=== PATIENT | male | born 1955 | race African-American/Black ===

== ENCOUNTER 2016-06-29 11:46 | Emergency (ER) | payer MEDICARE, MEDICAID ==
[~2016-06-29] VITALS: Ht 177.8 cm; Wt 71.2 kg
[~2016-06-29 11:46] MED LIST: AUGMENTIN 875-1 EAC1 ORAL; BACTRIM DS TAB1 EAC1 ORAL; ENALAPRIL MALEA10 MG ORAL; EPZICOM1 TAB ORAL; FLOMAX0.4 MG ORAL; HYDROCHLOROTH12.5 MG ORAL; IBUPROFEN600 MG ORAL; KEFLEX500 MG ORAL; LIPITOR40 MG ORAL; NORVIR100 MG ORAL; REYATAZ150 MG ORAL; UNOBMED
[2016-06-29] MEDS ORDERED: Clindamycin 900mg 50 ML IVPB ONE (12:30)
[2016-06-29 13:09] LABS: BASOPHILS % (AUTO) 0.6 % (0.0-2.0); EOSINOPHILS % (AUTO) 0.5 % (0.0-3.0); LYMPHOCYTES % (AUTO) 10.6 % (20.0-45.0); MEAN CORPUSCULAR HEMOGLOBIN 27.8 PG (27.0-31.0); MEAN CORPUSCULAR HGB CONC 31.3 G/DL (32.0-36.0); MEAN CORPUSCULAR VOLUME 89 FL (80-99); MEAN PLATELET VOLUME 10.3 FL (6.5-10.1); MONOCYTES % (AUTO) 5.7 % (1.0-10.0); NEUTROPHILS % (AUTO) 82.5 % (45.0-75.0); PLATELET COUNT 255 K/UL (150-450); RED BLOOD COUNT 5.27 M/UL (4.70-6.10); RED CELL DISTRIBUTION WIDTH 12.9 % (11.6-14.8); WHITE BLOOD COUNT 15.7 K/UL (4.8-10.8)
[2016-06-29 13:23] VITALS: BP 192/113
[2016-06-29 13:27] LABS: ALANINE AMINOTRANSFERASE 16 U/L (3-41); ALBUMIN/GLOBULIN RATIO 1.1 (1.0-2.7); ANION GAP 14 (5-15); ASPARTATE AMINO TRANSFERASE 24 U/L (5-40); CALCIUM 9.7 mg/dL (8.6-10.2); CARBON DIOXIDE 29 mEQ/L (20-30); CHLORIDE 96 mEQ/L (98-107); CREATININE 1.1 mg/dL (0.7-1.2); GLOMERULAR FILTRATION RATE > 60 mL/min (>60); HEMOLYSIS 4; POTASSIUM 4.2 mEQ/L (3.4-4.9); SODIUM 139 mEQ/L (135-145); TOTAL PROTEIN 7.5 g/dL (6.6-8.7)
[2016-06-29 14:20] LABS: ERYTHROCYTE SEDIMENTATION RATE 29 MM/HR (0-20)
[2016-06-29 15:18] VITALS: BP 181/114
--- NOTE | 2016-06-29 15:25 | Emergency Room Report ---
History of Present Illness General Chief Complaint: Edema Source: Patient Present Illness HPI Presents with swelling and edema of the left lower lip and inside of his mouth. This has been for several days. Is now painful inside and outside. He had implants the upper gum. He's been taking amoxicillin 3 times a day for several days. He is immunocompromised in that he has HIV. He denies any fevers or chills at this time. Using local care. No drainage. No numbness. On enalapril. Feverish. Pain is 810, burning ache and some radiation to jaw. Able to eat. No difficulty swallowing. No NVD, dysuria, URI sy, chest pain, dyspnea. Allergies: Coded Allergies: No Known Allergies (Verified Allergy, Severe, 11/18/09) Patient History Past Medical History: see triage record, HIV Social History: Denies: smoking Social History Narrative at home Reviewed Nursing Documentation: PMH: Agreed, PSxH: Agreed Nursing Documentation-PMH Past Medical History: No History, Except For Hx Hypertension: Yes Hx Pacemaker: No Hx Asthma: No Hx COPD: No Hx Diabetes: No Hx Cancer: No Hx Gastrointestinal Problems: No Hx Dialysis: No Hx Neurological Problems: No Hx Cerebrovascular Accident: No Hx Seizures: No Review of Systems All Other Systems: negative except mentioned in HPI Physical Exam Vital Signs Date Time Temp Pulse Resp B/P Pulse Ox O2 Delivery O2 Flow Rate FiO2 06/29/16 11:58 99.0 105 16 188/132 96 Room Air Sp02 EP Interpretation: reviewed, normal General Appearance: well appearing, no apparent distress, GCS 15 Head: normocephalic, atraumatic Eyes: bilateral eye PERRL, bilateral eye normal inspection ENT: normal pharynx, moist mucus membranes, other - L lower lip and area below lip swelling with induration and lesion outside. No fluctuance. Neck: full range of motion, supple Respiratory: lungs clear, normal breath sounds Cardiovascular #1: regular rate, rhythm Cardiovascular #2: 2+ radial (R) Gastrointestinal: normal inspection, normal bowel sounds, non tender, no mass, non-distended, scaphoid Musculoskeletal: back normal, gait/station normal, normal range of motion Neurologic: alert, oriented x3 - grossly normal Psychiatric: mood/affect normal - though somewhat pressured Skin: warm/dry, other - lesoin L chin area Medical Decision Making Diagnostic Impression: Primary Impression: Cellulitis Qualified Codes: L03.211 - Cellulitis of face Additional Impressions: Labial abscess Immunosuppression Outpatient antibiotic [facility] ER Course Immuncompromised patient with lesion L lower mouth worsening on oral antibiotics. DDx: abscess, cellulitis, atypical organisms (actinomycoses for one). Concern as worsening on appropriate antibiotics. Lab evaluation indicated. Treatment for pain also. Patient pushing for only oral antibiotics and initially refusing labs and IV. Finally agreed. WBC and inflammatory indices elevated. Discussed with patient need for admission for IV antibiotics and follow with possible I and D. Patient initially agreed to admission (Matt). Then refused to stay. Risks explained. Laboratory Tests Test 06/29/16 12:40 White Blood Count 15.7 K/UL (4.8-10.8) H Red Blood Count 5.27 M/UL (4.70-6.10) Hemoglobin 14.7 G/DL (14.2-18.0) Hematocrit 46.8 % (42.0-52.0) Mean Corpuscular Volume 89 FL (80-99) Mean Corpuscular Hemoglobin 27.8 PG (27.0-31.0) Mean Corpuscular Hemoglobin Concent 31.3 G/DL (32.0-36.0) L Red Cell Distribution Width 12.9 % (11.6-14.8) Platelet Count 255 K/UL (150-450) Mean Platelet Volume 10.3 FL (6.5-10.1) H Neutrophils (%) (Auto) 82.5 % (45.0-75.0) H Lymphocytes (%) (Auto) 10.6 % (20.0-45.0) L Monocytes (%) (Auto) 5.7 % (1.0-10.0) Eosinophils (%) (Auto) 0.5 % (0.0-3.0) Basophils (%) (Auto) 0.6 % (0.0-2.0) Erythrocyte Sedimentation Rate 29 MM/HR (0-20) H Prothrombin Time 10.0 SEC (9.30-11.50) Prothrombin Time INR 1.0 (0.9-1.1) PTT 31 SEC (23-33) Sodium Level 139 mEQ/L (135-145) Potassium Level 4.2 mEQ/L (3.4-4.9) Chloride Level 96 mEQ/L (98-107) L Carbon Dioxide Level 29 mEQ/L (20-30) Anion Gap 14 (5-15) Blood Urea Nitrogen 15 mg/dL (7-23) Creatinine 1.1 mg/dL (0.7-1.2) Estimate Glomerular Filtration Rate > 60 mL/min (>60) Glucose Level 128 mg/dL (74-106) H Lactic Acid Level 1.30 mmol/L (0.66-2.22) Calcium Level 9.7 mg/dL (8.6-10.2) Total Bilirubin 0.4 mg/dL (0.0-1.2) Aspartate Amino Transferase (AST) 24 U/L (5-40) Alanine Aminotransferase (ALT) 16 U/L (3-41) Alkaline Phosphatase 98 U/L (40-129) C-Reactive Protein, Quantitative 1.1 mg/dL (< 0.5) H Total Protein 7.5 g/dL (6.6-8.7) Albumin 4.0 g/dL (3.5-5.2) Globulin 3.5 g/dL Albumin/Globulin Ratio 1.1 (1.0-2.7) Last Vital Signs Date Time Temp Pulse Resp B/P Pulse Ox O2 Delivery O2 Flow Rate FiO2 06/29/16 15:18 91 16 181/114 96 Room Air 06/29/16 13:23 99.0 Status: improved Disposition: ADMITTED INPATIENT Condition: Serious Scripts Doxycycline Hyclate* (VIBRAMYCIN*) 100 Mg Capsule 100 MG ORAL EVERY 12 HOURS, #14 CAP 0 Refills Prov: Haim Jolly M.D. 06/29/16 Clindamycin Hcl (CLINDAMYCIN HCL) 300 Mg Capsule 600 MG ORAL FOUR TIMES A DAY, #56 CAP Prov: Haim Jolly M.D. 06/29/16 Referrals: NON PHYSICIAN (PCP) Haim Jolly M.D. Jun 29, 2016 15:25
[2016-06-29 16:15] VITALS: BP 191/113
[2016-06-29 16:32] VITALS: BP 191/113
[2016-06-29] MEDS ORDERED: VIBRAMYCIN100 MG ORAL (16:38)
[2016-06-29] MEDS ORDERED: CLINDAMYCIN HC300 MG ORAL (16:38)
== END 2016-06-29 16:43 | disposition left against medical advice (07) ==
LOC: EMR 12:22 → UNDOADMIN 15:20 → 4W 15:20 → EDBEDREQ 15:42 → CMPBEDREQ 16:45 → EDBEDREQ 16:45
DX: L03.211 Cellulitis of face (principal); L02.818 Cutaneous abscess of other sites; R60.9 Edema, unspecified; R22.0 Localized swelling, mass and lump, head; I10 Essential (primary) hypertension; Z79.2 Long term (current) use of antibiotics
CPT/HCPCS: 36415; 80053; 83605; 85025; 85610; 85651; 85730; 86140; 96374; 99284; S0077

== ENCOUNTER 2016-07-03 13:17 | Emergency (ER) | payer MEDICARE, MEDICAID ==
[~2016-07-03] VITALS: Ht 177.8 cm; Wt 71.7 kg
[~2016-07-03 13:17] MED LIST changes: +CLINDAMYCIN HC300 MG ORAL; +VIBRAMYCIN100 MG ORAL
[2016-07-03 14:25] VITALS: BP 154/98
[2016-07-03] MEDS ORDERED: Lidocaine 1% MPF 10mg/ml 5ml IM ONE (14:30)
[2016-07-03] MEDS ORDERED: Bacitracin Oint UD TOPIC ONE (15:15)
[2016-07-03 15:22] VITALS: BP 154/98
--- NOTE | 2016-07-03 18:58 | Emergency Room Report ---
History of Present Illness General Chief Complaint: Wound Recheck/Suture Removal Source: Patient Present Illness [facility] The patient is a 61-year-old male presenting for possible facial abscess. The patient was seen in this emergency department one week prior and diagnosed with facial cellulitis. The patient was discharged home with a prescription for doxycycline and clindamycin. The patient states that the pain and redness has decreased but he has noticed swelling. The pain is described as a 6/10 dull ache and is localized beneath the left lower lip. Patient denies any discharge or bleeding. Patient denies fever or chills Allergies: Coded Allergies: No Known Allergies (Verified Allergy, Severe, 11/18/09) Patient History Past Medical History: see triage record Pertinent Family History: none Reviewed Nursing Documentation: PMH: Agreed, PSxH: Agreed Nursing Documentation-PMH Past Medical History: No History, Except For Hx Hypertension: Yes Hx Pacemaker: No Hx Asthma: No Hx COPD: No Hx Diabetes: No Hx Cancer: No Hx Gastrointestinal Problems: No Hx Dialysis: No Hx Neurological Problems: No Hx Cerebrovascular Accident: No Hx Seizures: No Review of Systems All Other Systems: negative except mentioned in HPI Physical Exam Vital Signs Date Time Temp Pulse Resp B/P Pulse Ox O2 Delivery O2 Flow Rate FiO2 07/03/16 13:32 97.5 89 14 154/98 97 Room Air Sp02 EP Interpretation: reviewed, normal General Appearance: no apparent distress, alert, GCS 15, non-toxic Head: normocephalic, atraumatic Eyes: bilateral eye PERRL, bilateral eye normal inspection ENT: hearing grossly normal, normal pharynx, no angioedema, normal voice Neck: full range of motion, supple/symm/no masses Respiratory: chest non-tender, lungs clear, normal breath sounds, speaking full sentences Cardiovascular #1: regular rate, rhythm, no edema Musculoskeletal: back normal, gait/station normal, normal range of motion, non- tender Neurologic: alert, oriented x3, responsive, motor strength/tone normal, sensory intact, speech normal Psychiatric: judgement/insight normal, memory normal, mood/affect normal, no suicidal/homicidal ideation Skin: warm/dry, well hydrated, other - There is a 2 cm raised, indurated, tender lesion inferior to the bottom lip on the left side. No bleeding or discharge. Lymphatic: no adenopathy Procedures Incision and Drainage Incision and Drainage : Consent: Verbal Site: Inferior to lip L side Blade Size: 11 I & D Procedure: betadine prep Wound Location: face Wound's Depth, Shape: superficial Wound Length (cm): 2 Wound Explored: contaminated Irrigated w/ Saline (ccs): 100 Anesthesia: 1% Lidocaine Volume Anesthetic (ccs): 2 Splint Applied?: No Sling Applied?: No Patient Tolerated: Well Complications: None Medical Decision Making PA Attestation Dr. Alvarez is my supervising physician. Patient management was discussed with my supervising physician Diagnostic Impression: Primary Impression: Facial abscess ER Course The patient is a 61-year-old male presenting for possible facial abscess. Ddx considered include but not limited to abscess, insect bite, contact dermatitis, eczema, cellulitis PE: Vitals WNL. NAD. There is a 2 cm raised, indurated, tender lesion inferior to the bottom lip on the left side. No bleeding or discharge. Betadine prep was used to clean the skin and surrounding area. One percent lidocaine without epinephrine was used to anesthetize the are of planned incision. A #11 blade was used to make an incision in the central area of fluctuance approximately 1/3 the size of the diameter of the abscess. Once the incision was made, purulent material was expressed with blood. Blunt dissection was then used to release loculations and expressed more purulent material. Once only blood appeared to be expressed from the incision, normal saline was used to irrigate the inside of the abscess. The wound was then cleaned and sterile dressing applied. The patient will continue to take daily and about aches as was prescribed and will followup with primary care physician. ER precautions are given Last Vital Signs Date Time Temp Pulse Resp B/P Pulse Ox O2 Delivery O2 Flow Rate FiO2 07/03/16 15:22 97.5 14 154/98 97 Room Air 07/03/16 13:32 89 Status: improved Disposition: HOME, SELF-CARE Condition: Improved Patient Instructions: Abscess, Wound Check Additional Instructions: I discussed my findings with the patient. All questions and concerns have been answered. Treatment and medication compliance have been addressed. I advised the patient that they need to follow up with PMD in 3-5 days. Return to ED if symptoms worsen, new symptoms arise, or if needed for any reason. Patient verbalized understanding of discharge instructions. JANICE LEWIS Jul 03, 2016 18:58
== END 2016-07-03 15:24 | disposition home or self-care (01) ==
LOC: EMR 13:50
DX: L02.01 Cutaneous abscess of face (principal); I10 Essential (primary) hypertension
CPT/HCPCS: 10060

== ENCOUNTER 2016-10-23 10:01 | Emergency (ER) | payer MEDICARE, MEDICAID ==
[~2016-10-23] VITALS: Ht 177.8 cm; Wt 71.7 kg
[2016-10-23] MEDS ORDERED: Bacitracin Oint UD TOPIC ONE (10:30)
[2016-10-23] MEDS ORDERED: Bactrim DS (160mg/800mg) tab ORAL ONE (10:30)
[2016-10-23] MEDS ORDERED: Lidocaine 1% 10mg/ml/Epi 0.005mg/ml 30ml vial INJ ONE (10:30)
--- NOTE | 2016-10-23 10:34 | Emergency Room Report ---
History of Present Illness General Chief Complaint: Skin Rash/Abscess Source: Patient Present Illness HPI Patient with infection R face after dental work. This happened once previously and he needed I and D. He feels this needs to happen again. On ampicillin, not helping. Somewhat painful, not radiating 01/04. No drainage. No dental pain. No fevers, NVD. HIV on meds. Tetanus UTD. Allergies: Coded Allergies: No Known Allergies (Verified Allergy, Severe, 11/18/09) Patient History Past Medical History: see triage record Social History: Denies: smoking Social History Narrative drove self here Reviewed Nursing Documentation: PMH: Agreed, PSxH: Agreed Nursing Documentation-PMH Past Medical History: No History, Except For Hx Hypertension: Yes Hx Pacemaker: No Hx Asthma: No Hx COPD: No Hx Diabetes: No Hx Cancer: No Hx Gastrointestinal Problems: No Hx Dialysis: No Hx Neurological Problems: No Hx Cerebrovascular Accident: No Hx Seizures: No Review of Systems All Other Systems: negative except mentioned in HPI Physical Exam Vital Signs Date Time Temp Pulse Resp B/P Pulse Ox O2 Delivery O2 Flow Rate FiO2 10/23/16 10:07 97.3 98 20 143/91 98 Room Air Sp02 EP Interpretation: reviewed, normal General Appearance: well appearing, no apparent distress, GCS 15 Head: normocephalic, atraumatic Eyes: bilateral eye PERRL, bilateral eye normal inspection ENT: hearing grossly normal, normal voice, other - post dental work. See skin. Neck: full range of motion, supple Respiratory: no respiratory distress, speaking full sentences Musculoskeletal: gait/station normal, normal range of motion Neurologic: alert, normal gait, grossly normal Psychiatric: mood/affect normal Skin: other - abscess R cheek, near mouth 1cm round, some induration Procedures Incision and Drainage Incision and Drainage : Consent: Verbal Blade Size: 11 I & D Procedure: betadine prep, sterile drapes applied, sterile dressing applied, gauze wick placed Wound Location: face Wound's Depth, Shape: superficial Wound Explored: contaminated Irrigated w/ Saline (ccs): 10 Anesthesia: Lidocaine w/ Epi Patient Tolerated: Well Complications: None Medical Decision Making Diagnostic Impression: Primary Impression: Facial abscess ER Course Patient with facial abscess. Localized erythema without constitutional symptoms and not toxic. I and D indicated with appropriate antibiotics. I and D performed with small drain placed. Tolerated well. Patient stable for outpatient observation and treatment. Last Vital Signs Date Time Temp Pulse Resp B/P Pulse Ox O2 Delivery O2 Flow Rate FiO2 10/23/16 10:42 88 17 140/78 98 Room Air 10/23/16 10:42 98.0 Status: improved Disposition: HOME, SELF-CARE Condition: Improved Scripts Bacitracin (Bacitracin) 28.4 Gm Oint...g. 1 APPLIC TOPIC BID, #10 GM Prov: Haim Jolly M.D. 10/23/16 Ibuprofen* (MOTRIN*) 600 Mg Tablet 600 MG ORAL Q6H Y for For Pain, #16 TAB Prov: Haim Jolly M.D. 10/23/16 Trimethoprim/Sulfamethoxazole 160/800* (BACTRIM DS TABLET*) 1 Each Tablet 1 TAB ORAL Q12H, #14 TAB 0 Refills Prov: Haim Jolly M.D. 10/23/16 Haim Jolly M.D. Oct 23, 2016 10:34
[2016-10-23] MEDS ORDERED: BACTRIM DS TAB1 EAC1 ORAL (10:37)
[2016-10-23] MEDS ORDERED: IBUPROFEN600 MG ORAL (10:37)
[2016-10-23] MEDS ORDERED: BACITRACIN15 GM TOPIC (10:37)
[2016-10-23 10:42] VITALS: BP 140/78
== END 2016-10-23 10:45 | disposition home or self-care (01) ==
LOC: EMR 10:38
DX: L02.01 Cutaneous abscess of face (principal); I10 Essential (primary) hypertension
CPT/HCPCS: 10060

== ENCOUNTER 2016-10-24 07:39 | Emergency (ER) | payer MEDICARE, MEDICAID ==
[~2016-10-24] VITALS: Ht 177.8 cm; Wt 71.7 kg
[~2016-10-24 07:39] MED LIST changes: +BACITRACIN15 GM TOPIC
[2016-10-24 07:49] VITALS: BP 143/102
[2016-10-24] MEDS ORDERED: Lidocaine 1% 10mg/ml/EPI 0.01mg/ml 50ml INJ ONE (09:30)
[2016-10-24 10:18] VITALS: BP 133/99
--- NOTE | 2016-10-24 13:13 | Emergency Room Report ---
History of Present Illness General Chief Complaint: General Complaint Source: Patient Present Illness HPI [id number] came back to ED for "packing removal" after I&D of right facial abscess yesterday. Compliant with Abx. Denies fever/chills. Feels well otherwise. Allergies: Coded Allergies: No Known Allergies (Verified Allergy, Severe, 11/18/09) Patient History Past Medical History: none Past Surgical History: none Pertinent Family History: none Immunizations: UTD Reviewed Nursing Documentation: PMH: Agreed, PSxH: Agreed Nursing Documentation-PMH Past Medical History: No History, Except For Hx Hypertension: Yes Hx Pacemaker: No Hx Asthma: No Hx COPD: No Hx Diabetes: No Hx Cancer: No Hx Gastrointestinal Problems: No Hx Dialysis: No History Of Psychiatric Problem: No Hx Neurological Problems: No Hx Cerebrovascular Accident: No Hx Seizures: No Review of Systems All Other Systems: negative except mentioned in HPI Physical Exam Vital Signs Date Time Temp Pulse Resp B/P Pulse Ox O2 Delivery O2 Flow Rate FiO2 10/24/16 07:49 98.2 90 16 143/102 97 10/24/16 10:18 Room Air Sp02 EP Interpretation: reviewed, normal General Appearance: normal inspection, well appearing, no apparent distress, alert, GCS 15, non-toxic Head: normocephalic, atraumatic Eyes: bilateral eye EOMI, bilateral eye PERRL ENT: normal ENT inspection, hearing grossly normal, normal voice Neck: normal inspection, full range of motion, supple, no bony tend Respiratory: normal inspection, lungs clear, normal breath sounds, no respiratory distress, no retraction, no wheezing Cardiovascular #1: regular rate, rhythm, no edema Gastrointestinal: normal inspection, normal bowel sounds, non tender, soft, no guarding, no hernia Genitourinary: no CVA tenderness Musculoskeletal: normal inspection, back normal, normal range of motion, Ryann' s Sign negative Neurologic: normal inspection, alert, oriented x3, responsive, 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 No cellulitis. I dont see any packing. I dont see any obvious incision site Procedures Incision and Drainage Incision and Drainage : Consent: Verbal Blade Size: 11 I & D Procedure: betadine prep, sterile drapes applied, sterile dressing applied, gauze wick placed Wound Location: face Wound's Depth, Shape: superficial Wound Explored: clean Anesthesia: Lidocaine w/ Epi Splint Applied?: No Sling Applied?: No Patient Tolerated: Well Complications: None Progress 2-3cc blood expressed after I&D, no pus Medical Decision Making Diagnostic Impression: Primary Impression: Facial abscess ER Course No packing visualized, likely fell out Re I&D with minimal blood/pus expressed Advised completion of Abx for cellulitis DC home Last Vital Signs Date Time Temp Pulse Resp B/P Pulse Ox O2 Delivery O2 Flow Rate FiO2 10/24/16 10:18 98.2 68 14 133/99 100 Room Air Status: improved Disposition: HOME, SELF-CARE Condition: Improved Referrals: NON PHYSICIAN (PCP) Patient Instructions: Abscess, [id number] Additional Instructions: - change dressing daily - Complete ALL antibiotics as prescribed ANDERS YANES M.D. Oct 24, 2016 13:13
== END 2016-10-24 10:20 | disposition home or self-care (01) ==
LOC: EMR 08:20
DX: L02.01 Cutaneous abscess of face (principal); I10 Essential (primary) hypertension
CPT/HCPCS: 10060

== ENCOUNTER 2016-12-22 09:31 | Inpatient (IN) | payer MEDICARE, MEDICAID ==
[2016-12-22] VITALS (9 sets, daily range): BP systolic 141–184; BP diastolic 98–127
[~2016-12-22] VITALS: Ht 175.3 cm; Wt 70.3 kg
[2016-12-22] MEDS ORDERED: TRUVADA 200 MG1 EAC1 ORAL (09:48)
[2016-12-22] MEDS ORDERED: BP pill (10:16)
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
[2016-12-22] MEDS ORDERED: Ciprofloxacin Opth Soln LEFT EYE ONE (10:30)
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
--- NOTE | 2016-12-22 14:44 | Diagnostic Imaging Report ---
Indications: Chest pain Technique: Portable AP chest Findings: Comparison: None Left hemidiaphragm elevated, gas-filled bowel subjacent. 1.5 cm partially circumscribed nodular density overlies right lung base. Lungs otherwise clear. Heart size, pulmonary vasculature within normal limits. No pleural abnormalities are evident. IMPRESSION: Right basal nodular density most likely represents overlying nipple shadow. True lung nodule not excludable. Repeat with nipple markers suggested Nonspecific gaseous distention of bowel beneath elevated left hemidiaphragm Otherwise negative
[2016-12-22 15:24] LABS: BASOPHILS % (AUTO) 2.3 % (0.0-2.0); MEAN CORPUSCULAR HEMOGLOBIN 26.3 PG (27.0-31.0); MEAN CORPUSCULAR HGB CONC 31.2 G/DL (32.0-36.0); MEAN CORPUSCULAR VOLUME 84 FL (80-99); MEAN PLATELET VOLUME 8.7 FL (6.5-10.1); MONOCYTES % (AUTO) 10.9 % (1.0-10.0); NEUTROPHILS % (AUTO) 52.8 % (45.0-75.0); PLATELET COUNT 234 K/UL (150-450); RED BLOOD COUNT 5.55 M/UL (4.70-6.10); RED CELL DISTRIBUTION WIDTH 12.4 % (11.6-14.8); WHITE BLOOD COUNT 6.7 K/UL (4.8-10.8)
[2016-12-22 15:37] LABS: ALANINE AMINOTRANSFERASE 35 U/L (3-41); ALBUMIN/GLOBULIN RATIO 0.8 (1.0-2.7); ANION GAP 12 (5-15); ASPARTATE AMINO TRANSFERASE 55 U/L (5-40); CALCIUM 9.5 mg/dL (8.6-10.2); CARBON DIOXIDE 30 mEQ/L (20-30); CHLORIDE 95 mEQ/L (98-107); CREATININE 1.2 mg/dL (0.7-1.2); GLOMERULAR FILTRATION RATE > 60 mL/min (>60); HEMOLYSIS 6; POTASSIUM 4.3 mEQ/L (3.4-4.9); PROTHROMBIN TIME 10.4 SEC (9.30-11.50); SODIUM 137 mEQ/L (135-145); TOTAL PROTEIN 8.3 g/dL (6.6-8.7)
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
[2016-12-22] MEDS ORDERED: Zolpidem 5mg tab ORAL PRN (16:30)
[2016-12-22] MEDS ORDERED: Miralax 17gm pkt ORAL PRN (16:30)
[2016-12-22] MEDS ORDERED: Mylanta II UD 30ml ORAL PRN (16:30)
[2016-12-22] MEDS ORDERED: Morphine Sulfate 2mg/ml Inj IVP PRN ×3 (16:30→18:35)
[2016-12-22] MEDS ORDERED: LORazepam Inj 2mg/ml 1ml IV PRN (16:30)
[2016-12-22] MEDS ORDERED: Fluorescein Strips ONE (19:26)
[2016-12-22] MEDS ORDERED: Lidocaine 1% MPF 10mg/ml 5ml ONE (19:27)
[2016-12-22] MEDS ORDERED: Maxitrol Opth Oint 3.5gm ONE (19:27)
[2016-12-22] MEDS ORDERED: Dexamethasone 4mg/ml vial ONE ×2 (19:27→21:12)
[2016-12-22] MEDS ORDERED: Tetracaine 0.5% Opth Soln ONE (19:27)
[2016-12-22] MEDS ORDERED: Pred Forte 1% Opth Susp 1ml ONE (19:27)
[2016-12-22] MEDS ORDERED: Povidone-Iodine 5% opth solution ONE (19:28)
[2016-12-22] MEDS ORDERED: EPINEPHrine 1mg/1ml Amp ONE (19:28)
[2016-12-22] MEDS ORDERED: Carbachol 0.01% Op Soln 1.5ml vial ONE (19:28)
[2016-12-22] MEDS ORDERED: Bupivacaine 0.75% 30ml vial INJ ONE (19:28)
[2016-12-22] MEDS ORDERED: Lidocaine 4% Amp ONE (19:28)
[2016-12-22] MEDS ORDERED: BSS 15ml BTL ONE ×2 (19:28→21:47)
[2016-12-22] MEDS ORDERED: Bacitracin 50000 Units Vial ONE (19:31)
[2016-12-22] MEDS ORDERED: Sodium Hyaluronate 10 mg/ml 0.85ml ONE ×4 (19:31→21:37)
--- NOTE | 2016-12-22 19:41 | Pre-Procedure Note/Attestation ---
Pre-Procedure Note/Attestation Complete Prior to Procedure Planned Procedure: left - Repair of rutured globe, left eye, Exploration of left eye, possible removal of lens, left eye Procedure Narrative: Repair of ruptured globe, left eye Exploration of left eye Possible removal of lens, left eye Indications for Procedure Pre-Operative Diagnosis: Ruptured globe, left eye Attestation I attest that I discussed the nature of the procedure; its benefits; risks and complications; and alternatives (and the risks and benefits of such alternatives ), prior to the procedure, with the patient (or the patient's legal technical support representative). I attest that, if there was a reasonable possibility of needing a blood transfusion, the patient (or the patient's legal technical support representative) was given the [place] Department of Health Services standardized written summary, pursuant to the [place] Blood Safety Act ([place] Health and Safety Code # 1645, as amended). I attest that I re-evaluated the patient just prior to the surgery and that there has been no change in the patient's H&P, except as documented below: Arturo Garcia MD Dec 22, 2016 19:41
[2016-12-22] MEDS ORDERED: Propofol 10mg/ml 20ml IV ONE ×2 (20:05→20:30)
[2016-12-22] MEDS ORDERED: LR 1000ml ONE (20:30)
[2016-12-22] MEDS ORDERED: NS Irrig 1000ml ONE (20:30)
[2016-12-22] MEDS ORDERED: fentaNYL 100 mcg/2 mL IV ONE (20:30)
[2016-12-22] MEDS ORDERED: Midazolam 2mg/2ml Inj ONE (20:30)
[2016-12-22] MEDS ORDERED: Neostigmine 1mg/ml 10ml Inj ONE (20:30)
[2016-12-22] MEDS ORDERED: Glycopyrrolate 0.2mg/ml 1ml Vial ONE (20:30)
[2016-12-22] MEDS ORDERED: Sterile Water Irrig 1000ml IRRIG ONE (20:30)
[2016-12-22] MEDS ORDERED: Nimbex 2mg/ml Inj 10ML IVP ONE (20:30)
--- NOTE | 2016-12-22 21:07 | Anethesia Preoperative Eval ---
Anesthesia Pre-op PMH/ROS General Date of Evaluation: Dec 22, 2016 Time of Evaluation: 20:20 Anesthesiologist: Wellington ASA Score: ASA 3 Mallampati Score Class I : Soft palate, uvula, fauces, pillars visible Class II: Soft palate, uvula, fauces visible Class III: Soft palate, base of uvula visible Class IV: Only hard plate visible Mallampati Classification: Class III Surgeon: Radha Diagnosis: L eye corneal laceratiobn Surgical Procedure: L eye exploration Anesthesia History: none Social History: smoking - h/o Family History: no anesthesia problems Allergies: Coded Allergies: No Known Allergies (Verified , 12/22/16) Past Medical History Cardiovascular: Reports: HTN, Denies: CAD, SD, arrhythmia, other, valve dz Pulmonary: Denies: COPD, PARAMJIT, asthma, other Gastrointestinal/Genitourinary: Reports: GERD Neurologic/Psychiatric: Reports: depression/anxiety, Denies: CVA, TIA, dementia, other Endocrine: Denies: DM, hypothyroidism, other, steroids HEENT: Denies: LOWER ELWHA (L), LOWER ELWHA (R), cataract (L), cataract (R), glaucoma, other Hematology/Immune: Reports: other - HIV -AIDS, Denies: DVT, anemia, bleeding disorder Musculoskeletal/Integumentary: Denies: DDD, DJD, OA, RA, edema, other Other: other - malnourished PMH Narrative: as above PSxH Narrative: see chart Anesthesia Pre-op Phys. Exam Physician Exam Last Vital Signs Date Time Temp Pulse Resp B/P Pulse Ox O2 Delivery O2 Flow Rate FiO2 12/22/16 20:00 97.9 20 184/127 100 Room Air 12/22/16 16:56 74 Constitutional: NAD Neurologic: CN 2-12 intact Cardiovascular: RRR Respiratory: CTA Airway Exam Mallampati Score: Class III MO: limited Neck: stiff ROM: limited Teeth: missing, broken Dentures: lower, upper Anesthesia Pre-op A/P Labs Hematology Test 12/22/16 14:50 White Blood Count 6.7 K/UL (4.8-10.8) Red Blood Count 5.55 M/UL (4.70-6.10) Hemoglobin 14.6 G/DL (14.2-18.0) Hematocrit 46.8 % (42.0-52.0) Mean Corpuscular Volume 84 FL (80-99) Mean Corpuscular Hemoglobin 26.3 PG (27.0-31.0) L Mean Corpuscular Hemoglobin Concent 31.2 G/DL (32.0-36.0) L Red Cell Distribution Width 12.4 % (11.6-14.8) Platelet Count 234 K/UL (150-450) Mean Platelet Volume 8.7 FL (6.5-10.1) Neutrophils (%) (Auto) 52.8 % (45.0-75.0) Lymphocytes (%) (Auto) 33.0 % (20.0-45.0) Monocytes (%) (Auto) 10.9 % (1.0-10.0) H Eosinophils (%) (Auto) 1.0 % (0.0-3.0) Basophils (%) (Auto) 2.3 % (0.0-2.0) H Coagulation Test 12/22/16 14:50 Prothrombin Time 10.4 SEC (9.30-11.50) Prothromb Time International Ratio 1.0 (0.9-1.1) Activated Partial Thromboplast Time 31 SEC (23-33) Chemistry Test 12/22/16 14:50 Sodium Level 137 mEQ/L (135-145) Potassium Level 4.3 mEQ/L (3.4-4.9) Chloride Level 95 mEQ/L (98-107) L Carbon Dioxide Level 30 mEQ/L (20-30) Anion Gap 12 (5-15) Blood Urea Nitrogen 13 mg/dL (7-23) Creatinine 1.2 mg/dL (0.7-1.2) Estimat Glomerular Filtration Rate > 60 mL/min (>60) Glucose Level 109 mg/dL (74-106) H Calcium Level 9.5 mg/dL (8.6-10.2) Total Bilirubin 0.4 mg/dL (0.0-1.2) Aspartate Amino Transf (AST/SGOT) 55 U/L (5-40) H Alanine Aminotransferase (ALT/SGPT) 35 U/L (3-41) Alkaline Phosphatase 81 U/L (40-129) Total Creatine Kinase 497 U/L (38-174) H Total Protein 8.3 g/dL (6.6-8.7) Albumin 3.9 g/dL (3.5-5.2) Globulin 4.4 g/dL Albumin/Globulin Ratio 0.8 (1.0-2.7) L Studies Pre-op Studies: EKG - SR Risk Assessment & Plan Assessment: ASA3 Plan: GA with ETT Status Change Before Surgery: No Pre-Antibiotics Drug: none JOSH SOMERS M.D. Dec 22, 2016 21:07
[2016-12-22] MEDS ORDERED: LR 1000ml 1,000 ML IVLG SCH (21:08)
[2016-12-22] MEDS ORDERED: BSS 500ml btl ONE (21:12)
[2016-12-22] MEDS ORDERED: Midazolam 2mg/2ml Inj IVP PRN (21:15)
[2016-12-22] MEDS ORDERED: Hydromorphone 0.5mg/0.5ml inj IVP PRN (21:15)
[2016-12-22] MEDS ORDERED: Meperidine 25mg/0.5ml Inj IV PRN (21:15)
[2016-12-22] MEDS ORDERED: DiphenhydrAMINE 50mg/ml Inj IVP PRN (21:15)
[2016-12-22] MEDS ORDERED: Norco 5mg/325mg tab ORAL PRN (22:30)
--- NOTE | 2016-12-22 22:37 | Immediate Post-Op Evaluation ---
Immediate Post-Op Evalulation Immediate Post-Op Evalulation Procedure: L eye exploration repair of corneal laceration Date of Evaluation: Dec 22, 2016 Time of Evaluation: 22:35 IV Fluids: 1000 Blood Products: none Estimated Blood Loss: min Urinary Output: none Blood Pressure Systolic: 140 Blood Pressure Diastolic: 86 Pulse Rate: 77 Respiratory Rate: 20 O2 Sat by Pulse Oximetry: 99 Temperature (Fahrenheit): 97.6 Pain Score (1-10): 2 Nausea: No Complications none Patient Status: reacts, patent, extubated, none Hydration Status: adequate JOSH SOMERS M.D. Dec 22, 2016 22:37
--- NOTE | 2016-12-22 22:43 | Brief Operative Note ---
Immediate Post Operative Note Operative Note Pre-op Diagnosis: Ruptured globe, left eye Procedure: Repair of Full thickness cornea laceration with iris prolapse, OS Lensectomy with Rupture of anterior capsule with extruding lens material, OS Lysis of Anterior synechiae, OS Lysis of Posterior synechiae, OS Removal of Iris membranes, OS Post-op Diagnosis: Full thickness cornea laceration with iris prolapse, OS Cataract with rupture of anterior capsule and extruding lens material, OS Anterior synechiae, OS Posterior synechiae, OS Iris membranes, OS Post-op Diagnosis: same as pre-op plus Surgeon: Kuldip Garcia MD Abap Developer: none Anesthesiologist: Dr Paris Anesthesia: general Specimen: yes - necrotic iris vs inflammatory membranes Complications: none Condition: stable Estimated Blood Loss: minimal Implant(s) used?: No Arturo Garcia MD Dec 22, 2016 22:43
[2016-12-23] VITALS: BP 144/101
[2016-12-23 04:00] VITALS: BP 142/106
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
[2016-12-23 07:36] LABS: BASOPHILS % (AUTO) 0.8 % (0.0-2.0); EOSINOPHILS % (AUTO) 0.4 % (0.0-3.0); LYMPHOCYTES % (AUTO) 40.2 % (20.0-45.0); MEAN CORPUSCULAR HEMOGLOBIN 27.5 PG (27.0-31.0); MEAN CORPUSCULAR HGB CONC 32.4 G/DL (32.0-36.0); MEAN CORPUSCULAR VOLUME 85 FL (80-99); MEAN PLATELET VOLUME 8.2 FL (6.5-10.1); MONOCYTES % (AUTO) 9.6 % (1.0-10.0); NEUTROPHILS % (AUTO) 48.9 % (45.0-75.0); PLATELET COUNT 222 K/UL (150-450); RED BLOOD COUNT 4.99 M/UL (4.70-6.10); RED CELL DISTRIBUTION WIDTH 12.4 % (11.6-14.8); WHITE BLOOD COUNT 5.8 K/UL (4.8-10.8)
[2016-12-23 08:00] VITALS: BP 145/100
[2016-12-23 08:11] LABS: ALANINE AMINOTRANSFERASE 29 U/L (3-41); ALBUMIN/GLOBULIN RATIO 0.9 (1.0-2.7); ANION GAP 11 (5-15); ASPARTATE AMINO TRANSFERASE 46 U/L (5-40); CALCIUM 9.2 mg/dL (8.6-10.2); CARBON DIOXIDE 29 mEQ/L (20-30); CHLORIDE 97 mEQ/L (98-107); CHOLESTEROL 196 mg/dL (< 200); CHOLESTEROL/HDL RATIO 2.3 (3.3-4.4); CREATININE 1.2 mg/dL (0.7-1.2); GLOMERULAR FILTRATION RATE > 60 mL/min (>60); HEMOLYSIS 9; LDL CHOLESTEROL (CALC.) 92 mg/dL (60-99); POTASSIUM 4.4 mEQ/L (3.4-4.9); SODIUM 137 mEQ/L (135-145); TOTAL PROTEIN 7.8 g/dL (6.6-8.7)
[2016-12-23 08:24] LABS: THYROID STIMULATING HORMONE 0.428 uIU/mL (0.300-4.500)
[2016-12-23] MEDS ORDERED: Ritonavir 100mg tab ORAL SCH (09:00)
[2016-12-23] MEDS ORDERED: Epzicom tab ORAL SCH (09:00)
[2016-12-23] MEDS ORDERED: Tamsulosin 0.4mg cap ORAL SCH (09:00)
--- NOTE | 2016-12-23 09:33 | 48 Hour Post Anesthesia Eval ---
Post Anesthesia Evaluation Procedure: L eye exploration repair of corneal laceration Date of Evaluation: Dec 23, 2016 Time of Evaluation: 07:13 Blood Pressure Systolic: 145 0: 100 Pulse Rate: 68 Respiratory Rate: 20 Temperature (Fahrenheit): 97.3 O2 Sat by Pulse Oximetry: 97 Airway: patent Nausea: No Vomiting: No Pain Intensity: 2 Hydration Status: adequate Cardiopulmonary Status: Stable Mental Status/LOC: patient returned to baseline Follow-up Care/Observations: 0 Post-Anesthesia Complications: 0 Follow-up care needed: N/A Lucius Douglass MD Dec 23, 2016 09:33
--- NOTE | 2016-12-23 11:24 | History & Physical ---
History and Physical History & Physicial Dictated for Int Med-Dr Morfin no. [id number] ELISSA GUNTER Dec 23, 2016 11:24
[2016-12-23 12:00] VITALS: BP_SYST 136; BP_SYST 145; BP_DIAS 100; BP_DIAS 88
[2016-12-23 16:00] VITALS: BP 150/99
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
[2016-12-23] MEDS: VANCOMYCIN LEFT EYE SCH ×4 (16:26→22:00)
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
[2016-12-23] MEDS: TOBRAMYCIN LEFT EYE SCH ×4 (16:50→23:00)
--- NOTE | 2016-12-23 17:15 | Progress Note ---
DATE: 12/23/2016 SUBJECTIVE: Postop day 1 repair of ruptured globe, left eye. The patient is left with the patch and shield in place with moderate discomfort from the left eye. OBJECTIVE: Upon exam, his visual acuity in the left eye is light perception. The bedside examination revealed the sutures to be intact as well as the wound margins well approximated. There was diffuse corneal edema with infiltrative processes inferiorly. There was no view of the anterior chamber secondary to the severe corneal edema and haze. ASSESSMENT/PLAN: 1. Postoperative day 1 repair of ruptured globe, left eye. The patient was seen by Dr. Nino Grijalva (retina specialist) early today. Will continue his followup and management. 2. The patient is to be started on fortified tobramycin eye drops 1 drop to the left eye q.2 h. while awake and also fortified vancomycin eye drops 1 drop q.2 h. to the left eye while awake. 3. The patient is to wear shield at all times. 4. He is allowed to be up and out of bed with assistance. 5. He is to continue Levaquin 500 mg IV daily and also an ID consult has been requested. I will continue to follow while he is in-house. Arturo Garcia M.D. DR: NAYAN JOB#: [id number] CC:
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
[2016-12-23 20:00] VITALS: BP 155/104
[2016-12-23] MEDS: Cefepime HCl 2 GM in D5W 110 ML IVPB SCH (21:11)
[2016-12-23] MEDS: Vancomycin 1250mg/D5W 250ml 250 ML IVPB SCH (23:24)
[2016-12-24] VITALS: BP 150/90
[2016-12-24] MEDS: TOBRAMYCIN LEFT EYE SCH ×12 (01:00→23:00)
[2016-12-24] MEDS: VANCOMYCIN LEFT EYE SCH ×12 (02:00→22:00)
[2016-12-24 08:13] LABS: BASOPHILS % (AUTO) 1.1 % (0.0-2.0); EOSINOPHILS % (AUTO) 0.9 % (0.0-3.0); LYMPHOCYTES % (AUTO) 37.3 % (20.0-45.0); MEAN CORPUSCULAR HEMOGLOBIN 27.3 PG (27.0-31.0); MEAN CORPUSCULAR HGB CONC 32.1 G/DL (32.0-36.0); MEAN CORPUSCULAR VOLUME 85 FL (80-99); MEAN PLATELET VOLUME 8.3 FL (6.5-10.1); MONOCYTES % (AUTO) 10.1 % (1.0-10.0); NEUTROPHILS % (AUTO) 50.6 % (45.0-75.0); PLATELET COUNT 231 K/UL (150-450); RED BLOOD COUNT 5.34 M/UL (4.70-6.10); RED CELL DISTRIBUTION WIDTH 12.4 % (11.6-14.8); WHITE BLOOD COUNT 5.1 K/UL (4.8-10.8)
[2016-12-24 08:14] VITALS: BP 102/64
[2016-12-24] MEDS: Cefepime HCl 2 GM in D5W 110 ML IVPB SCH ×2 (08:19→20:23)
[2016-12-24 08:36] LABS: ANION GAP 12 (5-15); CALCIUM 9.4 mg/dL (8.6-10.2); CARBON DIOXIDE 28 mEQ/L (20-30); CHLORIDE 96 mEQ/L (98-107); CREATININE 1.1 mg/dL (0.7-1.2); GLOMERULAR FILTRATION RATE > 60 mL/min (>60); HEMOLYSIS 4; POTASSIUM 4.1 mEQ/L (3.4-4.9); SODIUM 136 mEQ/L (135-145)
[2016-12-24] MEDS: Vancomycin 1250mg/D5W 250ml 250 ML IVPB SCH ×2 (10:55→22:46)
[2016-12-24 11:16] VITALS: BP 127/59
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
[2016-12-24 15:56] VITALS: BP 165/114
--- NOTE | 2016-12-24 16:39 | Internal Med Progress Note ---
Subjective Date of Service: Dec 24, 2016 Physician Name Elissa Gunter Attending Physician Maurisio Morfin MD Current Medications Medications (Trade) Dose Ordered Sig/Reynaldo Route PRN Reason Start Time Stop Time Status Last Admin Dose Admin Acetaminophen (Tylenol) 650 mg Q4H PRN ORAL fever 12/22/16 16:30 01/21/17 16:29 Acetaminophen (Tylenol) 650 mg Q4H PRN ORAL Mild Pain (Pain Scale 1-3) 12/22/16 22:30 01/21/17 22:29 Acetaminophen/ Hydrocodone Bitart ([place] 5/325) 1 tab Q4H PRN ORAL Moderate Pain (Pain Scale 4-6) 12/22/16 22:30 12/29/16 22:29 Al Hydroxide/Mg Hydroxide (Mylanta II) 30 ml Q6H PRN ORAL dyspepsia 12/22/16 16:30 01/21/17 16:29 Amlodipine Besylate (Norvasc) 5 mg DAILY ORAL 12/23/16 15:00 01/22/17 14:59 12/23/16 14:41 Atorvastatin Calcium (Lipitor) 40 mg BEDTIME ORAL 12/22/16 21:00 01/21/17 20:59 12/23/16 21:11 Cefepime HCl 2 gm/ Dextrose 110 ml @ 220 mls/hr Q12HR@0800,2000 IVPB 12/23/16 20:00 12/30/16 19:59 12/24/16 08:19 Clonidine HCl (Catapres) 0.1 mg Q4H PRN ORAL SBP > 160 12/22/16 18:30 01/21/17 18:29 12/22/16 18:40 Dextrose (Dextrose 50%) STAT PRN IV Hypoglycemia 12/22/16 16:30 01/21/17 16:29 Emtricitabine/ Tenofovir (Truvada 200/ 300mg) 1 tab DAILY ORAL 12/23/16 09:00 01/22/17 08:59 UNV Lorazepam (Ativan 2mg/ml 1ml) 0.5 mg Q4H PRN IV For Anxiety 12/22/16 16:30 12/29/16 16:29 Morphine Sulfate (Morphine Sulfate) 1 mg Q4H PRN IVP For Moderate Pain 4-6 12/22/16 18:35 12/29/16 16:29 Morphine Sulfate (Morphine Sulfate) 2 mg Q4H PRN IVP Severe Pain (Pain Scale 7-10) 12/22/16 18:30 12/29/16 18:29 Ondansetron HCl (Zofran) 4 mg Q4H PRN IVP Nausea & Vomiting 12/22/16 22:30 01/21/17 22:29 Polyethylene Glycol (Miralax) 17 gm HSPRN PRN ORAL Constipation 12/22/16 16:30 01/21/17 16:29 Tobramycin (Fortified Tobramycin) 1 drop Q2H LEFT EYE 12/23/16 17:00 12/30/16 16:59 12/24/16 13:37 Vancomycin HCl (Fortified Vancomycin) 1 drop Q2H LEFT EYE 12/23/16 16:00 12/30/16 15:59 12/24/16 16:18 Vancomycin HCl 1 ea 1 ea DAILY PRN MISC Per rx protocol 12/23/16 18:15 01/22/17 18:14 Vancomycin HCl/ Dextrose (Vancomycin 1250mg/D5W 250ml) 250 ml @ 166.667 mls/hr Q12HR@1100,2300 IVPB 12/23/16 23:00 12/28/16 22:59 12/24/16 10:55 Zolpidem Tartrate (Ambien) 5 mg HSPRN PRN ORAL Insomnia 12/22/16 16:30 01/21/17 16:29 Allergies: Coded Allergies: No Known Allergies (Verified , 12/22/16) ROS Limited/Unobtainable: No Constitutional: Reports: no symptoms HEENT: Reports: eye pain Cardiovascular: Reports: no symptoms Respiratory: Reports: no symptoms Gastrointestinal/Abdominal: Reports: no symptoms Genitourinary: Reports: no symptoms Neurologic/Psychiatric: Reports: no symptoms Subjective 61 YO M admitted with left corneal laceration and globe rupture. S/P repair . Cover for Adam Morales-Dr Morfin. Objective Last Vital Signs Date Time Temp Pulse Resp B/P Pulse Ox O2 Delivery O2 Flow Rate FiO2 12/24/16 15:56 97.2 97 20 165/114 97 Room Air 12/22/16 22:57 8.0 Laboratory Tests Test 12/24/16 07:20 White Blood Count 5.1 K/UL (4.8-10.8) Red Blood Count 5.34 M/UL (4.70-6.10) Hemoglobin 14.6 G/DL (14.2-18.0) Hematocrit 45.3 % (42.0-52.0) Mean Corpuscular Volume 85 FL (80-99) Mean Corpuscular Hemoglobin 27.3 PG (27.0-31.0) Mean Corpuscular Hemoglobin Concent 32.1 G/DL (32.0-36.0) Red Cell Distribution Width 12.4 % (11.6-14.8) Platelet Count 231 K/UL (150-450) Mean Platelet Volume 8.3 FL (6.5-10.1) Neutrophils (%) (Auto) 50.6 % (45.0-75.0) Lymphocytes (%) (Auto) 37.3 % (20.0-45.0) Monocytes (%) (Auto) 10.1 % (1.0-10.0) H Eosinophils (%) (Auto) 0.9 % (0.0-3.0) Basophils (%) (Auto) 1.1 % (0.0-2.0) Sodium Level 136 mEQ/L (135-145) Potassium Level 4.1 mEQ/L (3.4-4.9) Chloride Level 96 mEQ/L (98-107) L Carbon Dioxide Level 28 mEQ/L (20-30) Anion Gap 12 (5-15) Blood Urea Nitrogen 11 mg/dL (7-23) Creatinine 1.1 mg/dL (0.7-1.2) Estimat Glomerular Filtration Rate > 60 mL/min (>60) Glucose Level 103 mg/dL (74-106) Calcium Level 9.4 mg/dL (8.6-10.2) Microbiology Date/Time Source Procedure Growth Status 12/22/16 21:03 Eye Left Gram Stain - Final Resulted 12/22/16 21:03 Eye Left Wound Culture Pending Resulted 12/22/16 21:03 Eye Left Gram Stain - Final Resulted 12/22/16 21:03 Eye Left Aerobic Culture Pending Resulted 12/22/16 10:08 Eye Left Gram Stain - Final Resulted 12/22/16 10:08 Eye Left Eye Culture - Preliminary NO GROWTH AFTER 48 HOURS Resulted Intake and Output 6/28/17 6/29/17 19:00 07:00 Intake Total 400 ml 1160.000 ml Balance 400 ml 1160.000 ml Intake Oral 400 ml 800 ml IV Total 360.000 ml # Voids 4 5 Objective General: alert, cooperative, no distress, appears stated age Head: normocephalic, without obvious abnormality, atraumatic Eyes: Left eye with dressingconjunctivae/corneas clear. PERRL, EOM's intact Throat: lips, mucosa, and tongue normal. MMM Neck: supple, symmetrical, trachea midline, and no JVD Lungs: clear to auscultation bilaterally Heart: regular rate and rhythm, S1, S2 normal, no murmur, click, rub or gallop Abdomen: soft, non-tender, non-distended, bowel sounds normal; no masses or organomegaly Extremities: extremities normal, atraumatic, no cyanosis or edema Pulses: 2+ and symmetric Skin: skin color, texture, turgor normal; no rashes or lesions Neurologic: grossly normal, no focal deficits Assessment/Plan Problem List: (1) Ruptured globe of left eye Assessment & Plan: S/P repair 12/22/16. See ophthamology and retinal specialist note. (2) HIV (human immunodeficiency virus infection) Assessment & Plan: see ID note. (3) Corneal laceration of left eye (4) HTN (hypertension) Assessment & Plan: Labile. Cont prn clonidine. D/C routine norvasc. Status: progressing ELISSA GUNTER Dec 24, 2016 16:39
--- NOTE | 2016-12-24 18:46 | Pulmonology Progress Note ---
Assessment/Plan Problems: (1) Corneal laceration of left eye (2) HTN (hypertension) (3) HIV disease Assessment/Plan cultures pending continue antibiotics f/u by ID, and ophthalmology all labs and meds reviewed Subjective ROS Limited/Unobtainable: No Constitutional: Reports: no symptoms HEENT: Repors: no symptoms Respiratory: Reports: no symptoms Cardiovascular: Reports: no symptoms Gastrointestinal/Abdominal: Reports: no symptoms Allergies: Coded Allergies: No Known Allergies (Verified , 12/22/16) Objective Last 24 Hour Vital Signs Date Time Temp Pulse Resp B/P Pulse Ox O2 Delivery O2 Flow Rate FiO2 12/24/16 18:36 165/114 12/24/16 15:56 97.2 97 20 165/114 97 Room Air 12/24/16 11:16 97.2 75 15 127/59 97 Room Air 12/24/16 09:00 51 102/64 12/24/16 08:14 98.1 51 14 102/64 95 Room Air 12/24/16 00:00 97.9 78 19 150/90 97 Room Air 12/23/16 20:00 97.3 81 18 155/104 Room Air Intake and Output 12/23/16 12/24/16 19:00 07:00 Intake Total 400 ml 1160.000 ml Balance 400 ml 1160.000 ml Intake Oral 400 ml 800 ml IV Total 360.000 ml # Voids 4 5 General Appearance: WD/WN HEENT: normocephalic, tonsils swollen - eye patch, other Respiratory/Chest: chest wall non-tender Cardiovascular: normal rate Abdomen: normal bowel sounds, soft, non tender Genitourinary: normal external genitalia Extremities: no clubbing Skin: no rash Microbiology Date/Time Source Procedure Growth Status 12/22/16 21:03 Eye Left Gram Stain - Final Resulted 12/22/16 21:03 Eye Left Wound Culture Pending Resulted 12/22/16 21:03 Eye Left Gram Stain - Final Resulted 12/22/16 21:03 Eye Left Aerobic Culture Pending Resulted 12/22/16 10:08 Eye Left Gram Stain - Final Resulted 12/22/16 10:08 Eye Left Eye Culture - Preliminary NO GROWTH AFTER 48 HOURS Resulted Laboratory Tests 12/24/16 07:20: White Blood Count 5.1, Red Blood Count 5.34, Hemoglobin 14.6, Hematocrit 45.3, Mean Corpuscular Volume 85, Mean Corpuscular Hemoglobin 27.3, Mean Corpuscular Hemoglobin Concent 32.1, Red Cell Distribution Width 12.4, Platelet Count 231, Mean Platelet Volume 8.3, Neutrophils (%) (Auto) 50.6, Lymphocytes (%) (Auto) 37.3, Monocytes (%) (Auto) 10.1H, Eosinophils (%) (Auto) 0.9, Basophils (%) ( Auto) 1.1, Sodium Level 136, Potassium Level 4.1, Chloride Level 96L, Carbon Dioxide Level 28, Anion Gap 12, Blood Urea Nitrogen 11, Creatinine 1.1, Estimat Glomerular Filtration Rate > 60, Glucose Level 103, Calcium Level 9.4 Current Medications Medications (Trade) Dose Ordered Sig/Reynaldo Route PRN Reason Start Time Stop Time Status Last Admin Dose Admin Acetaminophen (Tylenol) 650 mg Q4H PRN ORAL fever 12/22/16 16:30 01/21/17 16:29 Acetaminophen (Tylenol) 650 mg Q4H PRN ORAL Mild Pain (Pain Scale 1-3) 12/22/16 22:30 01/21/17 22:29 Acetaminophen/ Hydrocodone Bitart ([place] 5/325) 1 tab Q4H PRN ORAL Moderate Pain (Pain Scale 4-6) 12/22/16 22:30 12/29/16 22:29 Al Hydroxide/Mg Hydroxide (Mylanta II) 30 ml Q6H PRN ORAL dyspepsia 12/22/16 16:30 01/21/17 16:29 Atorvastatin Calcium (Lipitor) 40 mg BEDTIME ORAL 12/22/16 21:00 01/21/17 20:59 12/23/16 21:11 Cefepime HCl 2 gm/ Dextrose 110 ml @ 220 mls/hr Q12HR@0800,2000 IVPB 12/23/16 20:00 12/30/16 19:59 12/24/16 08:19 Clonidine HCl (Catapres) 0.1 mg Q4H PRN ORAL SBP > 160 12/22/16 18:30 01/21/17 18:29 12/24/16 18:36 Dextrose (Dextrose 50%) STAT PRN IV Hypoglycemia 12/22/16 16:30 01/21/17 16:29 Lorazepam (Ativan 2mg/ml 1ml) 0.5 mg Q4H PRN IV For Anxiety 12/22/16 16:30 12/29/16 16:29 Morphine Sulfate (Morphine Sulfate) 1 mg Q4H PRN IVP For Moderate Pain 4-12/22/16 18:35 12/29/16 16:29 Morphine Sulfate (Morphine Sulfate) 2 mg Q4H PRN IVP Severe Pain (Pain Scale 7-10) 12/22/16 18:30 12/29/16 18:29 Ondansetron HCl (Zofran) 4 mg Q4H PRN IVP Nausea & Vomiting 12/22/16 22:30 01/21/17 22:29 Patient Own Medication (Patient's Own Med) 1 ea DAILY ORAL 12/24/16 18:00 01/23/17 17:59 12/24/16 18:36 Polyethylene Glycol (Miralax) 17 gm HSPRN PRN ORAL Constipation 12/22/16 16:30 01/21/17 16:29 Tobramycin (Fortified Tobramycin) 1 drop Q2H LEFT EYE 12/23/16 17:00 12/30/16 16:59 12/24/16 13:37 Vancomycin HCl (Fortified Vancomycin) 1 drop Q2H LEFT EYE 12/23/16 16:00 12/30/16 15:59 12/24/16 18:36 Vancomycin HCl 1 ea 1 ea DAILY PRN MISC Per rx protocol 12/23/16 18:15 01/22/17 18:14 Vancomycin HCl/ Dextrose (Vancomycin 1250mg/D5W 250ml) 250 ml @ 166.667 mls/hr Q12HR@1100,2300 IVPB 12/23/16 23:00 12/28/16 22:59 12/24/16 10:55 Zolpidem Tartrate (Ambien) 5 mg HSPRN PRN ORAL Insomnia 12/22/16 16:30 01/21/17 16:29 ANNETTE MADRID Dec 24, 2016 18:46
[2016-12-24 20:00] VITALS: BP 167/116
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
[2016-12-25] MEDS: TOBRAMYCIN LEFT EYE SCH ×6 (01:00→11:55)
[2016-12-25] MEDS: VANCOMYCIN LEFT EYE SCH ×6 (02:00→10:41)
--- NOTE | 2016-12-25 02:46 | Progress Note ---
DATE: 12/24/2016 SUBJECTIVE: Postop day #2 repair of ruptured globe, left eye. The patient is resting comfortably with a shield over the eye. He has mild to moderate discomfort over the left eye, but of concern is his blood pressure fluctuation for which he is being treated at this time. The patient feels his visual acuity is about the same. OBJECTIVE: Upon exam, his visual acuity in the left eye is light perception. Bedside exam revealed the sutures to be intact as well as the wound margins being well approximated. There was diffuse corneal edema in the left eye that seems to be clearing somewhat in the periphery, but still very hazy. There is no view of the anterior chamber secondary to the severe corneal edema and haze. There is an infiltrate at approximately 5 o'clock, which was present previously. He is currently receiving his fortified vancomycin and fortified tobramycin drops every 2 hours. ASSESSMENT AND PLAN: 1. Postoperative day #2 repair of ruptured globe, left eye. The patient is also being seen by Dr. Nino Grijalva (retina specialist) for which today I spoke to him about the patient and in the future the patient will probably need a vitrectomy as well as cornea transplant. 2. Corneal infiltrates, left eye. The patient is to continue his fortified antibiotic drops every 2 hours. 3. The patient is to continue to wear his shield at all times. 4. From an ophthalmic standpoint, he can be discharged, but to continue his current fortified drops at least each one q.i.d. and to follow up in my office within several days. The patient can be discharged when it is felt that he is medically stable, but again from an ophthalmic standpoint he can be discharged. Upon discharge, he is to continue wearing the shield at all times and not to sleep on the left side or on the stomach. He is not allowed to have a physical exercise at this time and is also to limit his bending or lifting. I will continue to follow him in-house. Arturo Garcia M.D. DR: KAYDEN JOB#: [id number] CC:
[2016-12-25 06:53] VITALS: BP 161/111
[2016-12-25 06:54] LABS: BASOPHILS % (AUTO) 0.9 % (0.0-2.0); LYMPHOCYTES % (AUTO) 37.6 % (20.0-45.0); MEAN CORPUSCULAR HGB CONC 32.4 G/DL (32.0-36.0); MEAN CORPUSCULAR VOLUME 83 FL (80-99); MEAN PLATELET VOLUME 8.5 FL (6.5-10.1); MONOCYTES % (AUTO) 10.6 % (1.0-10.0); NEUTROPHILS % (AUTO) 49.8 % (45.0-75.0); PLATELET COUNT 221 K/UL (150-450); RED BLOOD COUNT 5.33 M/UL (4.70-6.10); RED CELL DISTRIBUTION WIDTH 12.1 % (11.6-14.8); WHITE BLOOD COUNT 5.5 K/UL (4.8-10.8)
[2016-12-25 07:23] LABS: ANION GAP 13 (5-15); CALCIUM 9.3 mg/dL (8.6-10.2); CARBON DIOXIDE 27 mEQ/L (20-30); CHLORIDE 95 mEQ/L (98-107); CREATININE 1.1 mg/dL (0.7-1.2); GLOMERULAR FILTRATION RATE > 60 mL/min (>60); HEMOLYSIS 2; POTASSIUM 4.3 mEQ/L (3.4-4.9); SODIUM 135 mEQ/L (135-145)
[2016-12-25 08:14] VITALS: BP 150/99
--- NOTE | 2016-12-25 09:15 | Progress Note ---
DATE: 12/24/2016 SUBJECTIVE: No pain or discomfort. OBJECTIVE: Vision today was light perception with no projection in the left eye. Tactile tension was normal. Lid edema had decreased significantly. There were full range of extraocular movements. The anterior segment revealed cloudiness of the cornea along the wound. The chamber appeared shallow. There was no evidence of pus at the wound or exudate in the conjunctival space. No fundus view could be obtained. LABORATORY DATA: Cultures were negative on the blood agar plate, but the thioglycollate broth appeared cloudy according to pathology and additional studies were to be made. ASSESSMENT: Unchanged. PLAN: I had a discussion with Dr. Garcia. We feel that the patient will possibly be discharged to my office on topical medications where an ultrasound will be performed. This would depend on the pending laboratory studies. Once an ultrasound is done, we can prepare at some point in the future for either injection of intravitreal medications or proceeding to a combined procedure where corneal transplant and cleanup vitrectomy will be performed. Nino Grijalva M.D. DR: TRACY JOB#: [id number] CC:
[2016-12-25] MEDS ORDERED: [UNRECOGNIZED DRUG - OTHER] LEFT EYE (09:45)
[2016-12-25] MEDS ORDERED: [UNRECOGNIZED DRUG - OTHER] LEFT EYE (09:45)
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
--- NOTE | 2016-12-25 09:47 | Internal Med Progress Note ---
Subjective Physician Name Maurisio Morfin Attending Physician Maurisio Morfin MD Current Medications Medications (Trade) Dose Ordered Sig/Reynaldo Route PRN Reason Start Time Stop Time Status Last Admin Dose Admin Acetaminophen (Tylenol) 650 mg Q4H PRN ORAL fever 12/22/16 16:30 01/21/17 16:29 Acetaminophen (Tylenol) 650 mg Q4H PRN ORAL Mild Pain (Pain Scale 1-3) 12/22/16 22:30 01/21/17 22:29 12/24/16 22:52 Acetaminophen/ Hydrocodone Bitart ([place] 5/325) 1 tab Q4H PRN ORAL Moderate Pain (Pain Scale 4-6) 12/22/16 22:30 12/29/16 22:29 Al Hydroxide/Mg Hydroxide (Mylanta II) 30 ml Q6H PRN ORAL dyspepsia 12/22/16 16:30 01/21/17 16:29 Atorvastatin Calcium (Lipitor) 40 mg BEDTIME ORAL 12/22/16 21:00 01/21/17 20:59 12/24/16 20:23 Cefepime HCl 2 gm/ Dextrose 110 ml @ 220 mls/hr Q12HR@0800,2000 IVPB 12/23/16 20:00 12/30/16 19:59 12/24/16 20:23 Clonidine HCl (Catapres) 0.1 mg Q4H PRN ORAL SBP > 160 12/22/16 18:30 01/21/17 18:29 12/25/16 06:58 Dextrose (Dextrose 50%) STAT PRN IV Hypoglycemia 12/22/16 16:30 01/21/17 16:29 Lorazepam (Ativan 2mg/ml 1ml) 0.5 mg Q4H PRN IV For Anxiety 12/22/16 16:30 12/29/16 16:29 Morphine Sulfate (Morphine Sulfate) 1 mg Q4H PRN IVP For Moderate Pain 4-6 12/22/16 18:35 12/29/16 16:29 Morphine Sulfate (Morphine Sulfate) 2 mg Q4H PRN IVP Severe Pain (Pain Scale 7-10) 12/22/16 18:30 12/29/16 18:29 Ondansetron HCl (Zofran) 4 mg Q4H PRN IVP Nausea & Vomiting 12/22/16 22:30 01/21/17 22:29 Patient Own Medication (Patient's Own Med) 1 ea DAILY ORAL 12/24/16 18:00 01/23/17 17:59 12/24/16 18:36 Polyethylene Glycol (Miralax) 17 gm HSPRN PRN ORAL Constipation 12/22/16 16:30 01/21/17 16:29 Tobramycin (Fortified Tobramycin) 1 drop Q2H LEFT EYE 12/23/16 17:00 12/30/16 16:59 12/25/16 06:58 Vancomycin HCl (Fortified Vancomycin) 1 drop Q2H LEFT EYE 12/23/16 16:00 12/30/16 15:59 12/24/16 20:25 Vancomycin HCl 1 ea 1 ea DAILY PRN MISC Per rx protocol 12/23/16 18:15 01/22/17 18:14 Vancomycin HCl/ Dextrose (Vancomycin 1250mg/D5W 250ml) 250 ml @ 166.667 mls/hr Q12HR@1100,2300 IVPB 12/23/16 23:00 12/28/16 22:59 12/24/16 22:46 Zolpidem Tartrate (Ambien) 5 mg HSPRN PRN ORAL Insomnia 12/22/16 16:30 01/21/17 16:29 Allergies: Coded Allergies: No Known Allergies (Verified , 12/22/16) Subjective awake, alert, responsive, NAD Objective Last Vital Signs Date Time Temp Pulse Resp B/P Pulse Ox O2 Delivery O2 Flow Rate FiO2 12/25/16 08:14 97.7 89 16 150/99 97 Room Air 12/22/16 22:57 8.0 Laboratory Tests Test 12/25/16 06:10 White Blood Count 5.5 K/UL (4.8-10.8) Red Blood Count 5.33 M/UL (4.70-6.10) Hemoglobin 14.4 G/DL (14.2-18.0) Hematocrit 44.4 % (42.0-52.0) Mean Corpuscular Volume 83 FL (80-99) Mean Corpuscular Hemoglobin 27.0 PG (27.0-31.0) Mean Corpuscular Hemoglobin Concent 32.4 G/DL (32.0-36.0) Red Cell Distribution Width 12.1 % (11.6-14.8) Platelet Count 221 K/UL (150-450) Mean Platelet Volume 8.5 FL (6.5-10.1) Neutrophils (%) (Auto) 49.8 % (45.0-75.0) Lymphocytes (%) (Auto) 37.6 % (20.0-45.0) Monocytes (%) (Auto) 10.6 % (1.0-10.0) H Eosinophils (%) (Auto) 1.0 % (0.0-3.0) Basophils (%) (Auto) 0.9 % (0.0-2.0) Sodium Level 135 mEQ/L (135-145) Potassium Level 4.3 mEQ/L (3.4-4.9) Chloride Level 95 mEQ/L (98-107) L Carbon Dioxide Level 27 mEQ/L (20-30) Anion Gap 13 (5-15) Blood Urea Nitrogen 10 mg/dL (7-23) Creatinine 1.1 mg/dL (0.7-1.2) Estimat Glomerular Filtration Rate > 60 mL/min (>60) Glucose Level 104 mg/dL (74-106) Calcium Level 9.3 mg/dL (8.6-10.2) Microbiology Date/Time Source Procedure Growth Status 12/22/16 21:03 Eye Left Gram Stain - Final Resulted 12/22/16 21:03 Eye Left Wound Culture Pending Resulted 12/22/16 21:03 Eye Left Gram Stain - Final Resulted 12/22/16 21:03 Eye Left Aerobic Culture Pending Resulted 12/22/16 10:08 Eye Left Gram Stain - Final Resulted 12/22/16 10:08 Eye Left Eye Culture - Preliminary NO GROWTH AFTER 48 HOURS Resulted Intake and Output 12/24/16 12/25/16 19:00 07:00 Intake Total 1300 ml 1160.000 ml Output Total 800 ml Balance 500 ml 1160.000 ml Intake Oral 1300 ml 800 ml IV Total 360.000 ml Output Urine Total 800 ml # Voids 3 Objective General: No acute distress, awake and alert HEENT: NCAT, sclera anicteric, Right PERRL, EOMI. Left eye patch Neck: Supple, no significant jugular venous distention, Lungs: Good inspiratory effort, no accessory muscle use, clear to auscultation bilaterally, no Wheeze or Rales. Heart: Regular rate and rhythm, normal S1/S2, no murmurs/gallops Abdomen: soft, nontender, nondistended. Normoactive bowel sounds Extremities: No Cyanosis , clubbing or edema. Neuro: A&O x 3, Able to move all extremities Skin: warm, no rashes or lesions Psych: Normal mood and affect Assessment/Plan Assessment/Plan 1. Full thickness corneal laceration with iris prolapse, left eye and rupture of the anterior capsule with extruding lens material, left eye s/p Repair of full-thickness corneal laceration and removal of necrotic iris material, left eye, Lensectomy, left eye. 2. Temporary blindness of the left eye. 3. Laceration of the left cornea. 4. Temporary blindness to the left eye. 5. Hypertension. 6. Hypercholesterolemia. 7. Human immunodeficiency virus. Plan: DC home today F/U with Dr. Garcia in 1 week Maurisio Morfin MD Dec 25, 2016 09:47
[2016-12-25] MEDS ORDERED: BSS 15ml BTL ONE (10:13)
[2016-12-25] MEDS: Cefepime HCl 2 GM in D5W 110 ML IVPB SCH (11:38)
--- NOTE | 2016-12-25 11:43 | Infectious Diseases Prog Note ---
"Assessment/Plan Assessment/Plan antibiotics : vancomycin iv, cefepime, vancomycin eye drops, tobramycin eye drops A 1. corneal laceration | lens displacement s/p repair 2. HIV 3. HTN P 1. continue vancomycin iv, cefepime 2. will follow up cultures Subjective Constitutional: Denies: chills, fever HEENT: Reports: other Respiratory: Denies: dry cough, shortness of breath Gastrointestinal/Abdominal: Denies: diarrhea, nausea, vomiting Musculoskeletal: Reports: pain - in left eye Allergies: Coded Allergies: No Known Allergies (Verified , 12/22/16) Objective Vital Signs Last 24 Hour Vital Signs Date Time Temp Pulse Resp B/P Pulse Ox O2 Delivery O2 Flow Rate FiO2 12/25/16 08:14 97.7 89 16 150/99 97 Room Air 12/25/16 06:58 161/111 12/25/16 06:53 98.1 76 18 161/111 98 Room Air 12/24/16 20:00 97.9 81 20 167/116 Room Air 12/24/16 18:36 165/114 12/24/16 15:56 97.2 97 20 165/114 97 Room Air Height (Feet): 5 Height (Inches): 9.00 Weight (Pounds): 155 HEENT: other - left eye closed Respiratory/Chest: lungs clear Cardiovascular: normal rate, regular rhythm, no gallop/murmur Abdomen: soft, non tender Extremities: no edema Microbiology Date/Time Source Procedure Growth Status 12/22/16 21:03 Eye Left Gram Stain - Final Resulted 12/22/16 21:03 Eye Left Wound Culture Pending Resulted 12/22/16 21:03 Eye Left Gram Stain - Final Resulted 12/22/16 21:03 Eye Left Aerobic Culture Pending Resulted Laboratory Tests Test 12/25/16 06:10 White Blood Count 5.5 K/UL (4.8-10.8) Red Blood Count 5.33 M/UL (4.70-6.10) Hemoglobin 14.4 G/DL (14.2-18.0) Hematocrit 44.4 % (42.0-52.0) Mean Corpuscular Volume 83 FL (80-99) Mean Corpuscular Hemoglobin 27.0 PG (27.0-31.0) Mean Corpuscular Hemoglobin Concent 32.4 G/DL (32.0-36.0) Red Cell Distribution Width 12.1 % (11.6-14.8) Platelet Count 221 K/UL (150-450) Mean Platelet Volume 8.5 FL (6.5-10.1) Neutrophils (%) (Auto) 49.8 % (45.0-75.0) Lymphocytes (%) (Auto) 37.6 % (20.0-45.0) Monocytes (%) (Auto) 10.6 % (1.0-10.0) H Eosinophils (%) (Auto) 1.0 % (0.0-3.0) Basophils (%) (Auto) 0.9 % (0.0-2.0) Sodium Level 135 mEQ/L (135-145) Potassium Level 4.3 mEQ/L (3.4-4.9) Chloride Level 95 mEQ/L (98-107) L Carbon Dioxide Level 27 mEQ/L (20-30) Anion Gap 13 (5-15) Blood Urea Nitrogen 10 mg/dL (7-23) Creatinine 1.1 mg/dL (0.7-1.2) Estimat Glomerular Filtration Rate > 60 mL/min (>60) Glucose Level 104 mg/dL (74-106) Calcium Level 9.3 mg/dL (8.6-10.2) MIKEY SOLORIO Dec 25, 2016 11:43"
[2016-12-25 12:02] VITALS: BP 167/112
--- NOTE | 2016-12-25 12:45 | Diagnostic Imaging Report ---
APPROVED REPORT CPT Code: 54457 Present Symptoms Comments: R/O DVT BILATERAL: Imaging reveals a patent deep venous system bilaterally. There is no evidence of thrombus within the femoral, popliteal or tibial segments. The greater saphenous veins are also within normal limits. Doppler indicates normal spontaneous flow within these segments.
[2016-12-25] MEDS ORDERED: Tubing IV Secondary IV ONE (14:59)
[2016-12-25] MEDS ORDERED: NS 275ml ONE (14:59)
--- NOTE | 2016-12-26 14:02 | Cardiology Report ---
APPROVED REPORT EKG Measurement Heart [id number] Normal sinus rhythm Normal ECG
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
== END 2016-12-25 15:00 | disposition home or self-care (01) | DRG 115 ==
LOC: EMR 09:59 → EDBEDREQ 14:24 → 4E 14:41 → EDBEDREQ 15:20
DX: S05.22XA Ocular laceration and rupture with prolapse or loss of intraocular tissue, left eye, initial encounter (principal); B20 Human immunodeficiency virus [HIV] disease; H21.542 Posterior synechiae (iris), left eye; Y04.8XXA Assault by other bodily force, initial encounter; H21.512 Anterior synechiae (iris), left eye; H21.42 Pupillary membranes, left eye; H54.62 Unqualified visual loss, left eye, normal vision right eye; I10 Essential (primary) hypertension; E78.00 Pure hypercholesterolemia, unspecified
CPT/HCPCS: 36415; 70450; 70480; 71010; 80048; 80053; 80061; 82550; 84443; 85025; 85610; 85730; 86850; 86900; 86901; 87070; 87075; 87205; 93005; 93970; 94003; 94150; J2250; J2710

== ENCOUNTER 2017-01-04 06:04 | Day surgery (SDC) | payer MEDICARE, MEDICAID ==
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
[2017-01-04] VITALS (13 sets, daily range): BP systolic 92–163; BP diastolic 53–102
[~2017-01-04] VITALS: Ht 177.8 cm; Wt 71.7 kg
[2017-01-04] MEDS: Gatifloxacin Opth Solution 0.5% LEFT EYE SCH ×3 (06:00→06:10)
[~2017-01-04 06:04] MED LIST changes: +BP pill; +Cyclopentolate 1% Opth Sol ONE; +Flurbiprofen 0.03% Opth Sol 2.5ml ONE; +Gatifloxacin Opth Solution 0.5% ONE; +Pred Forte 1% Opth Susp 1ml LEFT EYE SCH; +TRUVADA 200 MG1 EAC1 ORAL; +[UNRECOGNIZED DRUG - OTHER] LEFT EYE; +[UNRECOGNIZED DRUG - OTHER] LEFT EYE
[2017-01-04] MEDS ORDERED: Midazolam 2mg/2ml Inj ONE (06:05)
[2017-01-04] MEDS ORDERED: fentaNYL 100 mcg/2 mL IV ONE (06:05)
[2017-01-04] MEDS ORDERED: Propofol 10mg/ml 20ml IV ONE (06:05)
[2017-01-04] MEDS ORDERED: Labetalol 5mg/ml 20ml vial IV ONE (06:05)
[2017-01-04] MEDS ORDERED: Sterile Water Irrig 1000ml IRRIG ONE (06:05)
[2017-01-04] MEDS ORDERED: LR 1000ml ONE (06:05)
[2017-01-04] MEDS ORDERED: NS Irrig 1000ml ONE (06:05)
--- NOTE | 2017-01-04 06:08 | Pre-Procedure Note/Attestation ---
Pre-Procedure Note/Attestation Complete Prior to Procedure Planned Procedure: left Procedure Narrative: PPV, removal of retained lens material, retinal detachment repair, possible silicone oil injection, Left eye Indications for Procedure Pre-Operative Diagnosis: Ruptured globe with retained lens material and retinal detachment Left eye Attestation I attest that I discussed the nature of the procedure; its benefits; risks and complications; and alternatives (and the risks and benefits of such alternatives ), prior to the procedure, with the patient (or the patient's legal associate sales representative). I attest that, if there was a reasonable possibility of needing a blood transfusion, the patient (or the patient's legal associate sales representative) was given the [place] Department [employer] standardized written summary, pursuant to the Reynaldo [place] Blood Safety Act ([place] Health and Safety Code # 1645, as amended). I attest that I re-evaluated the patient just prior to the surgery and that there has been no change in the patient's H&P, except as documented below: MARCUS GRAVES Jan 04, 2017 06:08
[2017-01-04] MEDS: Cyclopentolate 1% Opth Sol LEFT EYE SCH ×3 (06:36→07:02)
[2017-01-04] MEDS: Flurbiprofen 0.03% Opth Sol 2.5ml LEFT EYE SCH ×3 (06:36→07:03)
[2017-01-04] MEDS: Phenylephrine 2.5% Op Soln LEFT EYE SCH ×3 (06:36→07:03)
[2017-01-04] MEDS ORDERED: ENALAPRIL MALEA10 MG ORAL (06:50)
[2017-01-04] MEDS ORDERED: BSS 500ml btl ONE ×2 (07:01→09:19)
[2017-01-04] MEDS ORDERED: Maxitrol Opth Oint 3.5gm ONE (07:02)
[2017-01-04] MEDS ORDERED: Tetracaine 0.5% Opth Soln ONE (07:02)
[2017-01-04] MEDS ORDERED: Kenalog-40 1ml Vial ONE (07:02)
[2017-01-04] MEDS ORDERED: Dexamethasone 4mg/ml vial ONE (07:02)
[2017-01-04] MEDS ORDERED: Kenalog-10 5ml Inj ONE (07:03)
[2017-01-04] MEDS ORDERED: BSS 15ml BTL ONE ×4 (07:03→08:54)
[2017-01-04] MEDS ORDERED: Povidone-Iodine 5% opth solution ONE (07:03)
[2017-01-04] MEDS ORDERED: Lidocaine 2% MPF 5ml Vial INJ ONE (07:03)
[2017-01-04] MEDS ORDERED: EPINEPHrine 1mg/1ml Amp ONE ×2 (07:03→09:19)
[2017-01-04] MEDS ORDERED: Bupivacaine 0.75% 30ml vial INJ ONE (07:03)
[2017-01-04] MEDS ORDERED: Sodium Hyaluronate 10 mg/ml 0.85ml ONE (07:04)
[2017-01-04] MEDS ORDERED: LR 1000ml 1,000 ML IVLG SCH (08:11)
--- NOTE | 2017-01-04 08:11 | Anethesia Preoperative Eval ---
Anesthesia Pre-op PMH/ROS General Date of Evaluation: Jan 04, 2017 Time of Evaluation: 07:25 Anesthesiologist: Wellington ASA Score: ASA 3 Mallampati Score Class I : Soft palate, uvula, fauces, pillars visible Class II: Soft palate, uvula, fauces visible Class III: Soft palate, base of uvula visible Class IV: Only hard plate visible Mallampati Classification: Class II Surgeon: Rudi Diagnosis: Posttraumatic retial detachment L eye Surgical Procedure: L eye PPV, membrane peel, laser treatment Anesthesia History: none Family History: no anesthesia problems Allergies: Coded Allergies: No Known Allergies (Verified , 12/22/16) Medications: see eMAR Past Medical History Cardiovascular: Reports: HTN, Denies: CAD, [place], arrhythmia, other, valve dz Pulmonary: Denies: COPD, PARAMJIT, asthma, other Gastrointestinal/Genitourinary: Reports: CRI, GERD, Denies: ESRD, other Neurologic/Psychiatric: Reports: depression/anxiety, Denies: CVA, TIA, dementia, other Endocrine: Denies: DM, hypothyroidism, other, steroids HEENT: Denies: GULKANA (L), GULKANA (R), cataract (L), cataract (R), glaucoma, other Hematology/Immune: Reports: other - HIV-AIDS, Denies: DVT, anemia, bleeding disorder Musculoskeletal/Integumentary: Denies: DDD, DJD, OA, RA, edema, other Other: other - malnourished PMH Narrative: as above PSxH Narrative: Hernia, L eye repair of ruptured cornea Anesthesia Pre-op Phys. Exam Physician Exam Last Vital Signs Date Time Temp Pulse Resp B/P Pulse Ox O2 Delivery O2 Flow Rate FiO2 01/04/17 06:45 98.0 78 18 163/102 96 Room Air Constitutional: NAD Neurologic: CN 2-12 intact Cardiovascular: RRR, no M/R/G Respiratory: CTA Gastrointestinal: S/NT/ND Airway Exam Mallampati Score: Class II MO: full Neck: stiff ROM: full Teeth: missing, broken Dentures: upper Anesthesia Pre-op A/P Labs see chart Studies Pre-op Studies: EKG - NSR Risk Assessment & Plan Assessment: ASA 3 Plan: GA with LMA surgeon request. Status Change Before Surgery: No Pre-Antibiotics Drug: none JOSH SOMERS M.D. Jan 04, 2017 08:11
[2017-01-04] MEDS ORDERED: DiphenhydrAMINE 50mg/ml Inj IVP PRN (08:15)
[2017-01-04] MEDS ORDERED: Hydromorphone 0.5mg/0.5ml inj IVP PRN (08:15)
[2017-01-04] MEDS ORDERED: Vancomycin Intravitreal Inj LEFT EYE ONE (08:45)
--- NOTE | 2017-01-04 09:15 | Pre-op HX & Phy Repo 2 SIG ---
DATE OF ADMISSION: 01/04/2017 REASON FOR EVALUATION: I was asked by Dr. Nino Grijalva to see this 61-year-old male, who is going for elective surgery on the left eye. The patient has a ruptured globe retinal detachment, left eye. Please see full Ophthalmology History and Physical by Dr. Nino Grijalva. PAST MEDICAL HISTORY AND REVIEW OF SYSTEMS: Remarkable for hypertension. No stroke or heart attack. Denies history of lung problem, asthma or bronchitis. Denies history of stomach problem, ulcer or bleeding. No history of renal failure or prostate problem. No thyroid or anemia. PAST SURGICAL HISTORY: Jaw fracture some years ago and and left eye surgery last week at [place]. MEDICATIONS: Present medications include enalapril 10 mg, ibuprofen, atorvastatin, and Bactrim. ALLERGIES: Not known. HABITS: The patient smoked for 10 years and stopped 18 years ago. Alcohol socially. No street drugs. FAMILY HISTORY: Mother has hypertension. Both parents are alive. PHYSICAL EXAMINATION: GENERAL: This is an alert, well-developed, well-nourished male in his 60s, no acute distress. VITAL SIGNS: Blood pressure 163/102, temperature 98 degrees, pulse 78 and regular, and respirations 18. SKIN: Dry, warm, and clear. No ulcers or rashes. LYMPHATICS: Lymph nodes are not enlarged. HEENT: Head, normocephalic. Ears, clear. Eyes, full description per Dr. Nino Grijalva. Mouth, clear and moist. . CHEST: No deformity or asymmetry. LUNGS: Clear. No rales or rhonchi. HEART: Sinus rhythm. No ectopy. No murmur. No S3 or S4. NECK: Supple. No palpable mass. No jugular vein distention. ABDOMEN: Soft, benign. No palpable mass. No rebound. EXTREMITIES: No edema. No varicose vein or tenderness. No deformity. GENITOURINARY TRACT: No CVA tenderness. No rebound. Denied dysuria. NERVOUS SYSTEM: No tremor. No nystagmus. No asymmetry. LABORATORY DATA: Electrocardiogram from 12/20/2016 normal sinus rhythm and normal ECG. Lab work from [facility] dated 12/25/2016 within normal limits. The patient did not eat or drink from 11 o'clock last night. This morning, take medication . IMPRESSION: 1. Ruptured globe and retinal detachment, left eye. 2. Hypertension, not controlled. 3. Hyperlipidemia. PLAN: Pars plana vitrectomy, 23 G membrane peeling, left eye per Dr. Nino Grijalva. CONCLUSION: The patient has history of hypertension, poorly controlled. No complications. His EKG and laboratory work normal. The patient did not eat or drink from 11 p.m. last night. The patient's condition optimized for surgery. Thank you very much, Dr. Grijalva, for privilege to participate presurgical care of this interesting patient. Emely Rios M.D. DR: MORENITA JOB#: [id number] CC:
--- NOTE | 2017-01-04 09:52 | Brief Operative Note ---
Immediate Post Operative Note Operative Note Chief Complaint: Poor vision L eye Pre-op Diagnosis: Ruptured globe with retained lens material and retinal detachment Left eye Procedure: PPV, Removal of pupillary membrane, Removal of retained lens material, cultures , injection of intravitreal antibiotics (Vancomycin and Ceftaz), iris retractor placement and removal L eye Post-op Diagnosis: Same as pre-op but with no retinal detachment noted. Surgeon: shelbi Central Supply Manager: power Anesthesiologist: Antonette Anesthesia: general Specimen: none Complications: none Condition: stable Drains: none Implant(s) used?: No MARCUS GRAVES Jan 04, 2017 09:52
--- NOTE | 2017-01-04 09:53 | Immediate Post-Op Evaluation ---
Immediate Post-Op Evalulation Immediate Post-Op Evalulation Procedure: L eye PPV membraine peel Date of Evaluation: Jan 04, 2017 Time of Evaluation: 09:51 IV Fluids: 800 Blood Products: none Estimated Blood Loss: none Urinary Output: none Blood Pressure Systolic: 108 Blood Pressure Diastolic: 68 Pulse Rate: 77 Respiratory Rate: 20 O2 Sat by Pulse Oximetry: 99 Temperature (Fahrenheit): 97.5 Pain Score (1-10): 2 Nausea: No Vomiting: No Complications none Patient Status: reacts, patent, none Hydration Status: adequate JOSH SOMERS M.D. Jan 04, 2017 09:53
--- NOTE | 2017-01-04 12:55 | 48 Hour Post Anesthesia Eval ---
Post Anesthesia Evaluation Procedure: L eye PPV membraine peel Date of Evaluation: Jan 04, 2017 Time of Evaluation: 12:54 Blood Pressure Systolic: 148 0: 82 Pulse Rate: 68 Respiratory Rate: 20 Temperature (Fahrenheit): 97.8 O2 Sat by Pulse Oximetry: 98 Airway: patent Nausea: No Vomiting: No Pain Intensity: 1 Hydration Status: adequate Cardiopulmonary Status: stable Mental Status/LOC: patient returned to baseline Follow-up Care/Observations: n/a Post-Anesthesia Complications: none Follow-up care needed: ready to discharge JOSH SOMERS M.D. Jan 04, 2017 12:55
--- NOTE | 2017-01-04 13:00 | Operative Note - Dictated ---
DATE OF OPERATION: 01/04/2017 PREOPERATIVE DIAGNOSES: Status post repair of ruptured globe with dense vitreous debris, retained lens material, and possible retinal detachment, left eye. POSTOPERATIVE DIAGNOSES: Status post ruptured globe with dense pupillary membrane, retained lens material, possible endophthalmitis, left eye. SURGEON: Nino Grijalva M.D. ADMITTED ATTORNEYS SURGEON: Arturo Garcia M.D. ANESTHESIA: LMA general. ANESTHESIOLOGIST: Lukas Paris M.D. JUSTIFICATION FOR SURGERY: This is a 61-year-old gentleman one and one and half weeks ago, sustained trauma to his left eye resulting in a corneal laceration. He presented two days post injury and had the cornea repaired by Dr. Garcia, who noted a ruptured lens capsule, severe inflammation, and possible infection. He is admitted for more definitive surgery after ultrasonography suggested a retinal detachment and/or severe inflammatory changes related to lens debris. BRIEF NOTE: The patient was brought to the operative room, placed on operating room table in supine position. After a time-out was performed and agreed upon by the staff, general LMA anesthesia was induced by Dr. Paris. Retrobulbar and Van Lint blocks were then given in the standard way. When all the blocks had taken effect, he was prepped and draped in normal manner. A lid speculum inserted into the left eye. The eye was examined and there was found to be adhesions between iris and wound as well as a shallow chamber. A paracentesis was made at the 12 o'clock position. Using Healon, the anterior chamber was deepened. The membrane pick was used to find a tissue plane between the iris and dense pupillary membrane. With the help of the intra-ocular forceps and the membrane pick, the pupillary membrane was gently elevated and removed as expeditiously as possible. The process was continued with the intraocular forceps used to remove the membrane from what was felt to be the pupillary center. Iris retractors were then placed at the 9, 11, 1, and 2:30 positions to better revealed the pupil. In order to facilitate visualization, the coronal epithelium was removed with a #64 Cordova blade. The vitreous cutter was then used to remove the debris that was remaining in the anterior chamber and to form a reasonable pupil. This was carried further posteriorly with debris was noted in the anterior vitreous. Once the pupil was round and the anterior debris was removed, light source was inserted into the eye and placed posteriorly and the wide-angle viewing system was used to gather a posterior view. Extensive debris was seen, but the retina appeared attached posteriorly, because of limited visualization and it was felt best to not continue with the vitrectomy until a corneal transplant could be performed to allow better visualization and access. The instruments were then removed from the eye and open wounds at the 9 o'clock position, 12 o'clock position, and 3 o'clock position were closed with interrupted sutures of 10-0 nylon. The knots were buried. Subconjunctival Decadron and gentamicin were then injected inferiorly. Intraocular antibiotics were injected through a small paracentesis going directly into the posterior chamber with a 30-gauge needle. Vancomycin 1 mg and ceftazidime 2.25 mg were used. Vitreous washings were sent to microbiology for cultures. Topical prednisolone, atropine, gatifloxacin, and Maxitrol ointment were instilled, after which the eye was patched and shielded. The patient was taken to recovery in excellent condition. There are no complications. Nino Grijalva M.D. DR: BALDEMAR JOB#: [id number] CC: Nino Grijalva M.D.; Fax#: [phone] Hopp, M.D. ; Fax#: [phone] BRENDA
== END 2017-01-04 14:20 | disposition home or self-care (01) ==
LOC: SUR 06:04
DX: H21.42 Pupillary membranes, left eye (principal); H59.022 Cataract (lens) fragments in eye following cataract surgery, left eye; Y84.8 Other medical procedures as the cause of abnormal reaction of the patient, or of later complication, without mention of misadventure at the time of the procedure; Y92.89 Other specified places as the place of occurrence of the external cause; E78.5 Hyperlipidemia, unspecified; I12.9 Hypertensive chronic kidney disease with stage 1 through stage 4 chronic kidney disease, or unspecified chronic kidney disease; N18.9 Chronic kidney disease, unspecified; K21.9 Gastro-esophageal reflux disease without esophagitis; E46 Unspecified protein-calorie malnutrition; F32.9 Major depressive disorder, single episode, unspecified; F41.9 Anxiety disorder, unspecified; Z87.891 Personal history of nicotine dependence
CPT/HCPCS: 66852; 87070; 87075; 87205; J0171; J1100; J2250; J2704; J3010; J3301; J3470; J3490; J7120; 94003; 94150

== ENCOUNTER 2017-02-24 11:05 | Emergency (ER) | payer MEDICARE, MEDICAID ==
[~2017-02-24] VITALS: Ht 172.7 cm; Wt 71.7 kg
[~2017-02-24 11:05] MED LIST changes: -Cyclopentolate 1% Opth Sol ONE; -Flurbiprofen 0.03% Opth Sol 2.5ml ONE; -Gatifloxacin Opth Solution 0.5% ONE; -Pred Forte 1% Opth Susp 1ml LEFT EYE SCH
[2017-02-24 11:08] VITALS: BP 158/99
[2017-02-24] MEDS ORDERED: NORCO 5-325 TA1 EACH ORAL (11:55)
[2017-02-24] MEDS ORDERED: ACYCLOVIR400 MG ORAL (11:55)
[2017-02-24 11:58] VITALS: BP 158/99
--- NOTE | 2017-02-24 13:50 | Emergency Room Report ---
History of Present Illness General Chief Complaint: General Complaint Source: Patient, Medical Record Present Illness HPI 61-year-old male presents ED for evaluation. Patient states the last 3 weeks he 's had this "rash" on his face which is now spreading. Is now painful. Pain is a 8/10, throbbing, nonradiating. Patient states he was seen by PMD and given referral to dermatology. Patient is here because the dermatology appointment is not until the end of February. Patient states he cannot wait that long. Patient has history of HIV. Denies sick contacts or recent travel. No other aggravating or relieving factors. Denies any other associated Allergies: Coded Allergies: No Known Allergies (Verified , 12/22/16) Patient History Past Medical History: HIV Past Surgical History: none Pertinent Family History: none Social History: Denies: smoking, alcohol use, drug use Immunizations: UTD Reviewed Nursing Documentation: PMH: Agreed, PSxH: Agreed Nursing Documentation-PMH Past Medical History: No History, Except For Hx Cardiac Problems: Yes - HIV+, high cholesterol Hx Hypertension: Yes Hx Pacemaker: No Hx Asthma: No Hx COPD: No Hx Diabetes: No Hx Cancer: No Hx Gastrointestinal Problems: No Hx Dialysis: No Hx Neurological Problems: No Hx Cerebrovascular Accident: No Hx Seizures: No Review of Systems All Other Systems: negative except mentioned in HPI Physical Exam Vital Signs Date Time Temp Pulse Resp B/P (MAP) Pulse Ox O2 Delivery O2 Flow Rate FiO2 02/24/17 11:08 97.5 96 18 158/99 97 Room Air Sp02 EP Interpretation: reviewed, normal General Appearance: no apparent distress, alert, GCS 15, non-toxic Head: normocephalic Eyes: bilateral eye normal inspection, bilateral eye PERRL ENT: normal ENT inspection Neck: normal inspection Respiratory: normal inspection Cardiovascular #1: normal inspection Gastrointestinal: normal inspection Rectal: deferred Genitourinary: no CVA tenderness Musculoskeletal: normal inspection Neurologic: alert, oriented x3, responsive, motor strength/tone normal, sensory intact, speech normal Psychiatric: normal inspection Skin: rash - diffuse herpetic lesions noted to the right and left of the mouth. coalescing. no induration or erythema Lymphatic: normal inspection Medical Decision Making Diagnostic Impression: Primary Impression: Facial wart ER Course Hospital Course 61-year-old male presents to ED with rash to face Differential diagnoses include: Cellulitis, dermatitis, insect bite, abscess Clinical course Patient placed on stretcher. After initial history, physical exam reveals an elderly male in no acute distress. On exam is an extensive testicular rash noted on both sides of the mouth. Worse on the right. coalescing. Nonerythematous base Discussed with Dr. Cantu (ID); she agrees that it is likely a wart and likely HPV Definitive treatment is freezing with liquid nitrogen. Not available at this hospital. Recommending prescribing acyclovir and analgesia. Patient needs to see a painter bottom for definitive treatment Diagnosis - facial wart stable and discharged to home with prescription for [place], Acyclovir. Instructed to followup with Dermatology. Instructed return to ED if symptoms recur or worsen Last Vital Signs Date Time Temp Pulse Resp B/P (MAP) Pulse Ox O2 Delivery O2 Flow Rate FiO2 02/24/17 11:58 97.5 89 18 158/99 97 Room Air Status: improved Disposition: HOME, SELF-CARE Condition: Stable Scripts Hydrocodone Bit/Acetaminophen 5-325* (NORCO 5-325*) 1 Each Tablet 1 TAB ORAL Q6H Y for For Pain, #20 TAB 0 Refills Prov: FABIOLA VANCE M.D. 02/24/17 Acyclovir* (ACYCLOVIR*) 400 Mg Tablet 400 MG ORAL TID for 10 Days, TAB Prov: FABIOLA VANCE M.D. 02/24/17 Patient Instructions: Human Papillomavirus, Vevd-st-Bxps FABIOLA VANCE M.D. Feb 24, 2017 13:50
== END 2017-02-24 12:24 | disposition home or self-care (01) ==
LOC: EMR 11:25
DX: B07.9 Viral wart, unspecified (principal); I10 Essential (primary) hypertension
CPT/HCPCS: 99284